=== PATIENT | female | born 1990 | race Caucasian/White ===

== ENCOUNTER 2025-03-10 13:16 | Emergency (ER) | payer OTHER ==
[~2025-03-10] VITALS: Ht 162.6 cm; Wt 96.2 kg
[2025-03-10 14:17] LABS: BASO # 0.0 10^3/uL (0.0-0.2); BASO % 0.9 % (0.0-1.0); EOS # 0.1 10^3/uL (0.0-0.5); EOS % 2.2 % (0.0-3.0); LYMPH # 1.5 10^3/uL (1.5-5.0); LYMPH % 33.3 % (24.0-44.0); MONO # 0.4 10^3/uL (0.0-0.8); MONO % 7.6 % (2.0-8.0); NEUTROPHILS # 2.6 10^3/uL (1.5-8.5); NEUTROPHILS % 55.8 % (36.0-66.0); PLATELET COUNT, AUTOMATED 293 10^3/uL (150-450)
[2025-03-10 14:22] VITALS: BP 152/98; TEMP 97.1; O2SAT 100
[2025-03-10 14:38] LABS: ALT/SGPT 17 U/L (7.0-40); AST/SGOT 19 U/L (<34); CALCIUM LEVEL 9.5 MG/DL (8.5-10.1); CARBON DIOXIDE LEVEL 26 MMOL/L (20-31); CHLORIDE LEVEL 104 MMOL/L (98-107); CREATININE FOR GFR 0.73 MG/DL (0.55-1.30); GLOMERULAR FILTRATION RATE > 90.0 (>60); POTASSIUM SERUM 3.7 MMOL/L (3.5-5.1); SODIUM LEVEL 138 MMOL/L (136-145)
[2025-03-10 14:45] LABS: HEPATITIS B SURFACE ANTIBODY POSITIVE (POSITIVE)
[2025-03-10 14:46] LABS: HCG, SERUM QUALITATIVE NEGATIVE (NEGATIVE)
[2025-03-10 15:11] LABS: HIV SCREEN CENTAUR EXPOSED NEGATIVE (NEGATIVE)
[2025-03-10 15:18] LABS: HEPATITIS C VIRUS ABY INDEX < 0.02 INDEX (<0.8)
== END 2025-03-10 14:56 | disposition home or self-care (01) ==
LOC: M ED 13:16
DX: S61.432A Puncture wound without foreign body of left hand, initial encounter (principal); W46.0XXA Contact with hypodermic needle, initial encounter; Z77.21 Contact with and (suspected) exposure to potentially hazardous body fluids; Y92.89 Other specified places as the place of occurrence of the external cause; Y93.89 Activity, other specified; Y99.0 Civilian activity done for income or pay

== ENCOUNTER 2025-04-01 10:27 | Emergency (ER) | payer BC, OTHER, SELFPAY ==
[~2025-04-01] VITALS: Ht 162.6 cm; Wt 97.7 kg
[2025-04-01 13:38] VITALS: BP 162/80; TEMP 98.1; O2SAT 100
== END 2025-04-01 13:40 | disposition home or self-care (01) ==
LOC: M ED 10:27
DX: F43.0 Acute stress reaction (principal); F10.10 Alcohol abuse, uncomplicated